=== PATIENT | male | born 1930 | race Caucasian/White ===

== ENCOUNTER → 2017-06-19 | Outpatient (REF) ==
[2017-06-19 09:54] LABS: ANION GAP 9 MEQ/L (8-16); BLOOD UREA NITROGEN 21 MG/DL (7-18); CALCIUM LEVEL 8.6 MG/DL (8.8-10.2); CARBON DIOXIDE LEVEL 31 MEQ/L (21-32); CHLORIDE LEVEL 105 MEQ/L (98-107); CREATININE FOR GFR 1.37 MG/DL (0.70-1.30); GLOMERULAR FILTRATION RATE 52.7 (>35); GLUCOSE, FASTING 108 MG/DL (70-100); POTASSIUM SERUM 3.1 MEQ/L (3.5-5.1); SODIUM LEVEL 145 MEQ/L (136-145)
[2017-06-19 10:04] LABS: NT-PRO BNP > 175000 PG/ML (<450)
== END ==
DX: I50.9 Heart failure, unspecified (principal)

== ENCOUNTER → 2017-06-22 | Outpatient (REF) ==
[2017-06-22 14:42] LABS: ANION GAP 8 MEQ/L (8-16); BLOOD UREA NITROGEN 23 MG/DL (7-18); CALCIUM LEVEL 8.4 MG/DL (8.8-10.2); CARBON DIOXIDE LEVEL 39 MEQ/L (21-32); CHLORIDE LEVEL 93 MEQ/L (98-107); CREATININE FOR GFR 1.37 MG/DL (0.70-1.30); GLOMERULAR FILTRATION RATE 52.7 (>35); GLUCOSE, FASTING 109 MG/DL (70-100); NT-PRO BNP 27426 PG/ML (<450); POTASSIUM SERUM 3.1 MEQ/L (3.5-5.1); SODIUM LEVEL 140 MEQ/L (136-145)
== END ==
DX: I50.9 Heart failure, unspecified (principal)

== ENCOUNTER → 2017-06-30 | Outpatient (REF) | payer MEDICARE ==
[2017-06-30 09:43] LABS: HEMOGLOBIN 8.9 g/dl (14.0-18.0); MEAN CORPUSCULAR HEMOGLOBIN 26.7 pg (27.0-33.0); MEAN CORPUSCULAR HGB CONC 29.7 g/dl (32.0-36.5); MEAN CORPUSCULAR VOLUME 90.1 fl (80.0-96.0); PLATELET COUNT, AUTOMATED 204 10^3/uL (150-450); RED BLOOD COUNT 3.33 10^6/uL (4.30-6.10); RED CELL DISTRIBUTION WIDTH 16.4 % (11.5-14.5); WHITE BLOOD COUNT 9.7 10^3/uL (4.0-10.0)
== END ==
DX: D64.9 Anemia, unspecified (principal)

== ENCOUNTER → 2017-07-07 | Outpatient (REF) ==
[2017-07-07 10:25] LABS: ANION GAP 8 MEQ/L (8-16); BLOOD UREA NITROGEN 24 MG/DL (7-18); CALCIUM LEVEL 9.1 MG/DL (8.8-10.2); CARBON DIOXIDE LEVEL 30 MEQ/L (21-32); CHLORIDE LEVEL 105 MEQ/L (98-107); CREATININE FOR GFR 1.49 MG/DL (0.70-1.30); GLOMERULAR FILTRATION RATE 47.8 (>35); GLUCOSE, FASTING 162 MG/DL (70-100); NT-PRO BNP 15988 PG/ML (<450); POTASSIUM SERUM 4.3 MEQ/L (3.5-5.1); SODIUM LEVEL 143 MEQ/L (136-145)
== END ==
DX: R60.9 Edema, unspecified (principal)

== ENCOUNTER → 2017-07-17 | Outpatient (REF) | payer MEDICARE ==
[2017-07-17 11:20] LABS: FERRITIN 120 NG/ML (26-388); IRON (FE) 41 UG/DL (65-175); PERCENT SATURATION 13.4 % (19.7-50.0); TOTAL IRON BINDING CAPACITY 305 UG/DL (250-450)
[2017-07-17 11:24] LABS: VITAMIN B12 LEVEL 573 PG/ML (247-911)
== END ==
DX: D64.9 Anemia, unspecified (principal)

== ENCOUNTER 2017-07-20 12:33 | Outpatient (REF) ==
[2017-07-21 11:10] LABS: HEMATOCRIT 35.4 % (42.0-52.0); HEMOGLOBIN 10.5 g/dl (13.5-17.5); MEAN CORPUSCULAR HEMOGLOBIN 26.5 pg (27.0-33.0); MEAN CORPUSCULAR HGB CONC 29.7 g/dl (32.0-36.5); MEAN CORPUSCULAR VOLUME 89.4 fl (80.0-96.0); PLATELET COUNT, AUTOMATED 203 10^3/uL (150-450); RED BLOOD COUNT 3.96 10^6/uL (4.30-6.10); RED CELL DISTRIBUTION WIDTH 17.7 % (11.5-14.5); WHITE BLOOD COUNT 9.8 10^3/uL (4.0-10.0)
== END 2017-07-21 ==
DX: D64.9 Anemia, unspecified (principal); Z90.49 Acquired absence of other specified parts of digestive tract

== ENCOUNTER → 2017-07-28 | Outpatient (REF) ==
[2017-07-28 11:52] LABS: ANION GAP 10 MEQ/L (8-16); BLOOD UREA NITROGEN 53 MG/DL (7-18); CALCIUM LEVEL 9.9 MG/DL (8.8-10.2); CARBON DIOXIDE LEVEL 27 MEQ/L (21-32); CHLORIDE LEVEL 106 MEQ/L (98-107); CREATININE FOR GFR 1.71 MG/DL (0.70-1.30); GLOMERULAR FILTRATION RATE 40.8 (>35); GLUCOSE, FASTING 159 MG/DL (70-100); SODIUM LEVEL 143 MEQ/L (136-145)
== END ==
DX: I10 Essential (primary) hypertension (principal)

== ENCOUNTER → 2017-07-30 | Outpatient (REF) ==
[2017-07-30 13:28] LABS: ANION GAP 8 MEQ/L (8-16); BLOOD UREA NITROGEN 58 MG/DL (7-18); CALCIUM LEVEL 9.6 MG/DL (8.8-10.2); CARBON DIOXIDE LEVEL 29 MEQ/L (21-32); CHLORIDE LEVEL 105 MEQ/L (98-107); GLOMERULAR FILTRATION RATE 44.1 (>35); GLUCOSE, FASTING 133 MG/DL (70-100); SODIUM LEVEL 142 MEQ/L (136-145)
[2017-07-30 14:02] LABS: POTASSIUM SERUM 5.3 MEQ/L (3.5-5.1)
== END ==
DX: E86.0 Dehydration (principal)

== ENCOUNTER → 2017-08-04 | Outpatient (REF) ==
[2017-08-04 10:35] LABS: HEMATOCRIT 33.5 % (42.0-52.0); HEMOGLOBIN 10.2 g/dl (13.5-17.5); MEAN CORPUSCULAR HEMOGLOBIN 26.8 pg (27.0-33.0); MEAN CORPUSCULAR HGB CONC 30.4 g/dl (32.0-36.5); MEAN CORPUSCULAR VOLUME 87.9 fl (80.0-96.0); PLATELET COUNT, AUTOMATED 258 10^3/uL (150-450); RED BLOOD COUNT 3.81 10^6/uL (4.30-6.10); RED CELL DISTRIBUTION WIDTH 18.6 % (11.5-14.5); WHITE BLOOD COUNT 8.6 10^3/uL (4.0-10.0)
[2017-08-04 11:19] LABS: ANION GAP 6 MEQ/L (8-16); BLOOD UREA NITROGEN 31 MG/DL (7-18); CALCIUM LEVEL 9.3 MG/DL (8.8-10.2); CARBON DIOXIDE LEVEL 26 MEQ/L (21-32); CHLORIDE LEVEL 109 MEQ/L (98-107); CREATININE FOR GFR 1.11 MG/DL (0.70-1.30); FERRITIN 141 NG/ML (26-388); GLOMERULAR FILTRATION RATE > 60.0 (>35); GLUCOSE, FASTING 116 MG/DL (70-100); IRON (FE) 42 UG/DL (65-175); NT-PRO BNP 13480 PG/ML (<450); PERCENT SATURATION 17.7 % (19.7-50.0); POTASSIUM SERUM 4.8 MEQ/L (3.5-5.1); SODIUM LEVEL 141 MEQ/L (136-145); TOTAL IRON BINDING CAPACITY 237 UG/DL (250-450)
[2017-08-04 12:13] LABS: CARCINOEMBRYONIC ANTIGEN 149.9 NG/ML (<2.5)
== END ==
DX: I50.9 Heart failure, unspecified (principal); D64.9 Anemia, unspecified; C18.9 Malignant neoplasm of colon, unspecified

== ENCOUNTER → 2017-08-11 | Outpatient (REF) ==
[2017-08-11 09:23] LABS: HEMATOCRIT 36.5 % (42.0-52.0); HEMOGLOBIN 11.2 g/dl (13.5-17.5); MEAN CORPUSCULAR HGB CONC 30.7 g/dl (32.0-36.5); PLATELET COUNT, AUTOMATED 276 10^3/uL (150-450); RED BLOOD COUNT 4.15 10^6/uL (4.30-6.10); RED CELL DISTRIBUTION WIDTH 19.3 % (11.5-14.5); WHITE BLOOD COUNT 7.8 10^3/uL (4.0-10.0)
[2017-08-11 09:53] LABS: ALBUMIN 3.1 GM/DL (3.2-5.2); ALBUMIN/GLOBULIN RATIO 0.79 (1.00-1.93); ALKALINE PHOSPHATASE 197 U/L (45-117); ALT/SGPT 11 U/L (12-78); ANION GAP 7 MEQ/L (8-16); AST/SGOT 15 U/L (7-37); BILIRUBIN,TOTAL 0.7 MG/DL (0.2-1.0); BLOOD UREA NITROGEN 28 MG/DL (7-18); CALCIUM LEVEL 9.1 MG/DL (8.8-10.2); CARBON DIOXIDE LEVEL 26 MEQ/L (21-32); CHLORIDE LEVEL 108 MEQ/L (98-107); CREATININE FOR GFR 1.27 MG/DL (0.70-1.30); GLOMERULAR FILTRATION RATE 57.5 (>35); GLUCOSE, FASTING 92 MG/DL (70-100); MAGNESIUM LEVEL 2.6 MG/DL (1.8-2.4); POTASSIUM SERUM 4.8 MEQ/L (3.5-5.1); SODIUM LEVEL 141 MEQ/L (136-145)
== END ==
DX: I50.9 Heart failure, unspecified (principal)